=== PATIENT | female | born 1955 | race Caucasian/White ===

== ENCOUNTER 2020-05-12 18:47 | Emergency (ER) | payer MEDICARE, MEDICAID ==
[2020-05-12 19:30] LABS: ALBUMIN 4.5 g/dL (3.5-5.0); ALKALINE PHOSPHATASE 156 U/L (38-126); ANION GAP 16 (5-19); ASPARTATE AMINO TRANSFERASE 18 U/L (14-36); BILIRUBIN,DIRECT 0.3 mg/dL (0.0-0.4); BILIRUBIN,TOTAL 0.9 mg/dL (0.2-1.3); BLOOD UREA NITROGEN 48 mg/dL (7-20); CALCIUM 10.1 mg/dL (8.4-10.2); CARBON DIOXIDE 17 mmol/L (22-30); CHLORIDE 99 mmol/L (98-107); CREATINE KINASE 38 U/L (30-135); TOTAL PROTEIN 7.7 g/dL (6.3-8.2)
[2020-05-12 19:32] LABS: ABSOLUTE BASOPHILS # (AUTO) 0.1 10^3/uL (0.0-0.2); ABSOLUTE EOSINOPHILS # (AUTO) 0.3 10^3/uL (0.0-0.6); ABSOLUTE LYMPHOCYTES (AUTO) 2.3 10^3/uL (0.5-4.7); ABSOLUTE MONOCYTES (AUTO) 0.8 10^3/uL (0.1-1.4); ABSOLUTE NEUT (AUTO) 8.1 10^3/uL (1.7-8.2); BASOPHILS % (AUTO) 1.1 % (0-2); EOSINOPHILS % (AUTO) 2.7 % (0-6); HEMATOCRIT 39.2 % (36.0-47.0); HEMOGLOBIN 13.3 g/dL (12.0-15.5); LYMPHOCYTES % (AUTO) 20.1 % (13-45); MEAN CORPUSCULAR HEMOGLOBIN 28.6 pg (27.0-33.4); MEAN CORPUSCULAR HGB CONC 33.9 g/dL (32.0-36.0); MEAN CORPUSCULAR VOLUME 84 fl (80-97); MONOCYTES % (AUTO) 6.7 % (3-13); PLATELET COUNT 292 10^3/uL (150-450); RED BLOOD COUNT 4.65 10^6/uL (3.72-5.28); RED CELL DISTRIBUTION WIDTH 16.3 % (11.5-14.0); SEGMENTED NEUTROPHILS % (AUTO) 69.4 % (42-78); TOTAL CELLS COUNTED % (AUTO) 100 %; WHITE BLOOD COUNT 11.7 10^3/uL (4.0-10.5)
[2020-05-12 19:42] LABS: CREATINE KINASE MB 0.62 ng/mL (<4.55)
[2020-05-12 19:44] LABS: TROPONIN I < 0.012 ng/mL
[2020-05-12 19:45] LABS: GLUCOSE 469 mg/dL (75-110)
[2020-05-12] MEDS ORDERED: INSULIN REG, HUMAN 100 UNIT/ML 3 ML VIAL (PYX) IV STA (20:08)
[2020-05-12] MEDS ORDERED: NORMAL SALINE 1000 ML 1,000 ML IV ONE (20:09)
--- NOTE | 2020-05-12 20:13 | ER Document Report ---
ED General - General Chief Complaint: General Weakness Stated Complaint: CHEST PAIN Time Seen by Provider: 05/12/20 19:54 Primary Care Provider: PER GUAN MD [[facility] BASED STAFF] - Follow up as needed RICKY GALAVIZ [NO LOCAL MD] - Follow up as needed Mode of Arrival: Stretcher Information source: Patient Notes: Patient is a 64-year-old female was brought into the emergency room by EMS with complaint of chest pain. Patient states she just moved here from out of town is living with her granddaughter. She states that in the move she lost her medications and is been without her insulin for the past few days. Patient states she has a past medical history pertinent for CVA x2 was on blood thinners but cannot remember when she took it last. She states that earlier today she got up felt dizzy fell and struck her head and left side of her body on the floo r. She is complaining of left-sided head pain and left shoulder pain. She also is complaining of some chest pain. Patient denies any past medical history pertinent for cardiac events. She does not know the medication she has been on in the past. She also states that she has been recently treated for UTI and is still having symptoms of burning when she urinates. TRAVEL OUTSIDE OF THE [place] IN LAST 30 DAYS: No - HPI Onset: This afternoon Onset/Duration: Gradual, Persistent, Worse Quality of pain: Achy Severity: Moderate Pain Level: 3 Associated symptoms: Body/muscle aches. denies: Chest pain Exacerbated by: Movement Relieved by: Denies Similar symptoms previously: Yes Recently seen / treated by doctor: No - Related Data Allergies/Adverse Reactions: Penicillins Allergy (Mild, Verified 05/12/20 21:01) Past Medical History - General Information source: Patient, Relative - Social History Smoking Status: Unknown if Ever Smoked Cigarette use (# per day): No Chew tobacco use (# tins/day): No Smoking Education Provided: No Frequency of alcohol use: None Drug Abuse: None Lives with: Family Family History: Reviewed & Not Pertinent - Past Medical History Cardiac Medical History: Reports: Hx Hypertension Endocrine Medical History: Reports: Hx Diabetes Mellitus Type 2 Review of Systems - Review of Systems Constitutional: Weakness EENT: No symptoms reported Cardiovascular: denies: Chest pain Respiratory: No symptoms reported Gastrointestinal: No symptoms reported Genitourinary: See HPI, Burning. denies: Discharge, Hematuria, Pain, Urgency, Retention Female Genitourinary: No symptoms reported. denies: Vaginal bleeding Musculoskeletal: See HPI, Muscle pain Skin: See HPI, Rash Hematologic/Lymphatic: No symptoms reported Neurological/Psychological: No symptoms reported -: Yes All other systems reviewed and negative Physical Exam - Vital signs Vitals: BP Pulse Ox 162/88 H 98 05/12/20 18:53 05/12/20 18:53 Interpretation: Hypertensive, Tachypneic - Notes Notes: PHYSICAL EXAMINATION: GENERAL: Patient is a well-nourished well-developed 64-year-old female no apparent distress on physical exam list does appear somewhat uncomfortable. HEAD: Examination patient's head shows no sign of hematomas abrasions ecchymosis or swelling. No palpable tenderness on the left side of the face. Patient has full range of motion of the jaw without any discomfort. EYES: Pupils equal round and reactive to light, extraocular movements intact, conjunctiva are normal. ENT: Nares patent, oropharynx clear without exudates. Oral mucosa is moderately dry but no fissuring of the tongue noted. NECK: Normal range of motion, supple without lymphadenopathy LUNGS: Breath sounds clear to auscultation bilaterally and equal. No wheezes rales or rhonchi. HEART: Regular rate and rhythm without murmurs ABDOMEN: Examination patient's abdomen shows bowel sounds present all 4 quads. She is nontender to palpate in all 4 quadrants. Female : The pelvic exam was not needed however given the patient was complaining of dysuria or urinary tract symptoms without having any infection in her urine visualization and the area shows patient to have an extended amount of candidiasis in her labial folds and groin area. This also ascends into her creases in the abdominal area and up to her breast. Musculoskeletal: Normal range of motion, no pitting or edema. No cyanosis. NEUROLOGICAL: . Normal speech, normal gait. Normal sensory, motor exams PSYCH: Normal mood, normal affect. SKIN: As noted above in patient was found to have a severe case of candidiasis extending from the labial folds and groin area upwards. Course - Re-evaluation Re-evalutation: 05/13/20 02:10 Patient's course has been really uneventful. Her blood sugar went from 572 down to 321. Patient was feeling better. She still complains of having burning sensation when she urinates even though her urine is negative. Examination of this pelvic area after urine was negative shows the patient has a severe candidiasis of the vaginal area and the folds in the abdominal area. Patient's nurse contacted her granddaughter who she is now living with and was confirmed that patient has been without her Lantus and her insulin for several days. She has just moved here from [facility]. And the daughter and daughter state they are not going back to see her primary care. They are currently actively seeking a local PCP. Patient states she is ready to go home she is feeling so much better. 05/13/20 02:10 05/13/20 02:23 Patient has been ambulated by the nurse to the bathroom and back without any dizziness or pain. Given the plan we have discussed with the granddaughter she will take patient back by cab and she will find a primary care provider. Have given them the name of the internal medicine doctor on-call tonight they can follow-up with them or see if they can accommodate them. - Vital Signs Vital signs: Temp Pulse Resp BP Pulse Ox 98.7 F 85 17 149/84 H 98 05/13/20 03:44 05/13/20 03:44 05/13/20 03:44 05/13/20 03:44 05/13/20 03:44 - Laboratory Result Diagrams: 05/12/20 18:59 05/12/20 18:59 Laboratory results interpreted by me: 05/12/20 05/12/20 05/12/20 18:59 18:59 21:53 WBC 11.7 H RDW 16.3 H Sodium 132.0 L Carbon Dioxide 17 L BUN 48 H Creatinine 1.36 H Est GFR ( Amer) 47 L Est GFR (MDRD) Non-Af 39 L Glucose 469 H* POC Glucose Alkaline Phosphatase 156 H Urine Protein 100 H Urine Glucose (UA) >=500 H Urine Blood SMALL H 05/12/20 05/13/20 22:25 01:20 WBC RDW Sodium Carbon Dioxide BUN Creatinine Est GFR ( Amer) Est GFR (MDRD) Non-Af Glucose POC Glucose 452 H* 341 H Alkaline Phosphatase Urine Protein Urine Glucose (UA) Urine Blood Discharge - Discharge Clinical Impression: Type 2 diabetes mellitus with hyperosmolar nonketotic hyperglycemia, Candidiasis of female genitalia, Candidiasis of breast Contusion of left shoulder Qualifiers: Encounter type: initial encounter Qualified Code(s): S40.012A - Contusion of left shoulder, initial encounter Condition: Stable Disposition: HOME, SELF-CARE Instructions: Contusion ([facility]), Hyperglycemia ([facility]) Additional Instructions: As we discussed home and continue your insulin as directed by your primary care provider. I am writing you for Lantus pen as well as the insulin pen. Continue with your current other medications that your granddaughter states you have in your drawer at bedside. Highly recommend that you make a list of we should take your medications and bring a list with you when you come to your doctors. It is very important you take your insulin as directed otherwise you continue to get dizzy spells and or falls. Currently you have no fracture bones of your shoulder. Highly recommend that you monitor your sugars more closely at least before each meal and as stated take the insulin as directed by your primary care provider. If you have concerns or problems or you are not getting better return to ER for reevaluation. Prescriptions: Insulin Aspart [Insulin Aspart Flexpen] 100 unit SQ ASDIR PRN #1 [email or web address] PRN Reason: Insulin Glargine,Hum.rec.anlog [Lantus Insulin 100 Unit/mL Insulin Pen] 1 unit SUBCUT BID #10 ml Forms: Elevated Blood Pressure Referrals: RICKY GALAVIZ [NO LOCAL MD] - Follow up as needed PER GUAN MD [[facility] BASED STAFF] - Follow up as needed
--- NOTE | 2020-05-12 20:16 | RADIOLOGY REPORT (SQ) ---
EXAM DESCRIPTION: RadLex: XR CHEST 1 VIEW CLINICAL HISTORY: 64 years Female; cp; COMPARISON: None. FINDINGS: Lungs: Lungs are clear, with no focal infiltrate, pneumothorax, or pleural effusion. Mediastinum: Mediastinum is within normal limits for this positioning. Bones: Bony structures are unremarkable. IMPRESSION: 1. No acute pulmonary findings.
[2020-05-12] MEDS ORDERED: INSULIN NPH (ISOPHANE), HUMAN 100 UNIT/ML 3 ML SUBCUT ONE (20:43)
--- NOTE | 2020-05-12 20:47 | RADIOLOGY REPORT (SQ) ---
CLINICAL INDICATION: fall pain. . TECHNIQUE: 3 view(s) were obtained of the left shoulder. COMPARISON: None. FINDINGS: No acute displaced fracture is identified of the shoulder. Alignment appears anatomic. Osteoarthritis. Surrounding soft tissues are unremarkable. IMPRESSION: No evidence of acute bony injury to the shoulder.
[2020-05-12] MEDS ORDERED: INSULIN REG, HUMAN 100 UNIT/ML 3 ML VIAL (PYX) SUBCUT ONE (20:49)
--- NOTE | 2020-05-12 20:49 | RADIOLOGY REPORT (SQ) ---
EXAM DESCRIPTION: CT HEAD WITHOUT IV CONTRAST COMPLETED DATE/TME: 05/12/2020 20:05 CLINICAL INDICATION: 54-year-old female status post fall. History of stroke. COMPARISON: No prior imaging is available for comparison TECHNIQUE: CT brain without contrast. This exam was performed according to our departmental dose optimization program which includes use of automated exposure control, adjustment of the mA and/or kV according to patient size and/or use of iterative reconstruction technique. FINDINGS: Multifocal regions of patchy hypoattenuation are present in a subcortical and periventricular deep white matter distribution, nonspecific; however, most likely represent small vessel ischemic disease, age indeterminate. Subcentimeter hypoattenuation within the bilateral basal ganglia age-indeterminate, however appearance suggestive of sequela of prior infarction. The ventricles, sulci, and cisterns are symmetric and unremarkable. The cunningham-white matter differentiation is preserved. There is no mass effect, midline shift, intra- or extra-axial fluid collection/acute hemorrhage. The osseous structures are unremarkable. The paranasal sinuses and mastoid air cells are clear. IMPRESSION: 1. No acute intracranial abnormalities. Nonspecific white matter change most likely small vessel ischemic disease, age indeterminate. 2. CT is insensitive for early evaluation of acute stroke. If there is clinical concern for acute ischemia, an MRI may be considered.
[2020-05-12 22:37] LABS: VENOUS BLOOD BASE EXCESS -0.9 mmol/L; VENOUS BLOOD HCO3 24.2 mmol/L (20-32); VENOUS BLOOD PH 7.38 (7.30-7.42)
[2020-05-12 22:58] LABS: APPEARANCE,URINE SLIGHTLY-CLOUDY; BILIRUBIN,URINE NEGATIVE (NEGATIVE); COLOR,URINE YELLOW; GLUCOSE, URINE >=500 mg/dL (NEGATIVE); KETONES,URINE NEGATIVE (NEGATIVE); LEUKOCYTE ESTERASE,URINE NEGATIVE (NEGATIVE); NITRITE,URINE NEGATIVE (NEGATIVE); PROTEIN,URINE 100 mg/dL (NEGATIVE); URINE SPECIFIC GRAVITY 1.008; UROBILINOGEN,URINE NEGATIVE mg/dL (<2.0)
--- NOTE | 2020-05-12 23:36 | EKG REPORT ---
SEVERITY:- ABNORMAL ECG - INCOMPLETE ANALYSIS DUE TO MISSING DATA IN PRECORDIAL LEAD(S) SINUS RHYTHM VENTRICULAR PREMATURE COMPLEX LVH WITH SECONDARY REPOLARIZATION ABNORMALITY : Confirmed by: Marie Rincon MD 12-May-2020 23:35:34
[2020-05-13] MEDS ORDERED: RINGERS SOLUTION,LACTATED 1,000 ML IV ONE (00:03)
[2020-05-13] MEDS: RINGERS SOLUTION,LACTATED 1,000 ML IV ONE ×2 (00:17→00:25)
[2020-05-13] MEDS ORDERED: FLUCONAZOLE 100 MG TABLET PO ONE (01:16)
[2020-05-13 03:45] VITALS: BP 149/84
== END 2020-05-13 03:44 | disposition home or self-care (01) ==
LOC: ER 18:47
DX: E11.65 Type 2 diabetes mellitus with hyperglycemia (principal); T38.3X6A Underdosing of insulin and oral hypoglycemic [antidiabetic] drugs, initial encounter; Z91.128 Patient's intentional underdosing of medication regimen for other reason; Z91.14 Patient's other noncompliance with medication regimen; S40.012A Contusion of left shoulder, initial encounter; R51 Headache; W19.XXXA Unspecified fall, initial encounter; R07.9 Chest pain, unspecified; B37.3 Candidiasis of vulva and vagina; B37.2 Candidiasis of skin and nail; R53.1 Weakness; R42 Dizziness and giddiness; R30.0 Dysuria; I10 Essential (primary) hypertension; Z87.440 Personal history of urinary (tract) infections; Z86.73 Personal history of transient ischemic attack (TIA), and cerebral infarction without residual deficits; Z88.0 Allergy status to penicillin
CPT/HCPCS: 93005; 99285; 96360; 96361; 36415; 87086; 82553; 82962; 82550; 83735; 85025; 87088; 80053; 81001; 84484; 87186; 82803; 71045; 73030; 70450; 93010; A9270 ×2; J7030; J7120; J1815

== ENCOUNTER 2020-08-06 08:30 | Emergency (ER) | payer MEDICARE, MEDICAID ==
[2020-08-06] MEDS ORDERED: ONDANSETRON HCL INJ/PF 4 MG/2 ML SDV IV ONE (10:29)
[2020-08-06] MEDS ORDERED: NORMAL SALINE 1000 ML 1,000 ML IV ONE ×2 (10:29→12:16)
[2020-08-06] MEDS ORDERED: MORPHINE SULFATE 10 MG/ML INJ IV ONE (10:29)
[2020-08-06 10:35] LABS: APPEARANCE,URINE CLOUDY; BILIRUBIN,URINE NEGATIVE (NEGATIVE); COLOR,URINE YELLOW; GLUCOSE, URINE >=500 mg/dL (NEGATIVE); KETONES,URINE TRACE mg/dL (NEGATIVE); LEUKOCYTE ESTERASE,URINE MODERATE (NEGATIVE); NITRITE,URINE NEGATIVE (NEGATIVE); PROTEIN,URINE >=500 mg/dL (NEGATIVE); URINE SPECIFIC GRAVITY 1.015; UROBILINOGEN,URINE NEGATIVE mg/dL (<2.0)
--- NOTE | 2020-08-06 10:48 | ER Document Report ---
ED GI/ - General Chief Complaint: Flank Pain Stated Complaint: ABDOMINAL PAIN Time Seen by Provider: 08/06/20 10:14 Notes: HPI: 64-year-old female that presents today with the onset 3 days ago of some suprapubic/right lower quadrant abdominal discomfort radiating to the right abdomen and right flank. She states it is "sharp and crampy" in nature. Positive dysuria. Supposedly a fever of 102 yesterday. History of kidney stones. Patient denies any nausea, vomiting, or diarrhea. No runny nose, congestion, or cough. No real aggravating relieving factors to the pain. ROS: See HPI All other review of systems reviewed and otherwise negative Reviewed vital signs and nursing note as charted by RN. PHYSICAL EXAM: CONSTITUTIONAL: Alert and oriented and responds appropriately to questions. Well-appearing; well-nourished HEAD: Normocephalic; atraumatic NECK: Supple without meningismus; non-tender; no cervical lymphadenopathy, no masses CARD: Regular rate and rhythm; no murmurs; symmetric distal pulses RESP: Normal chest excursion without splinting or tachypnea; breath sounds clear and equal bilaterally; no wheezes, no rhonchi, no rales ABD: Nonspecific tenderness to bilateral lower quadrants of the abdomen with no palpable masses or abdominal bruits. No rebound or guarding non-tender; no palpable organomegaly or masses BACK: The back appears normal and is non-tender to palpation EXT: Normal ROM in all joints; non-tender to palpation; no edema SKIN: Erythema under the pannus to bilateral lower quadrants of the abdomen with no tenderness or induration. NEURO: CN 2-12 intact; 5/5 bilateral upper and lower extremity strength with sensation intact to light touch PSYCH: The patient's mood and manner are appropriate. Grooming and personal hygiene are appropriate. TRAVEL OUTSIDE OF THE [place] IN LAST 30 DAYS: No - Related Data Allergies/Adverse Reactions: Penicillins Allergy (Mild, Verified 08/06/20 09:57) Past Medical History - Social History Smoking Status: Never Smoker Chew tobacco use (# tins/day): No Frequency of alcohol use: None Drug Abuse: None Family History: Reviewed & Not Pertinent - Past Medical History Cardiac Medical History: Reports: Hx Hypertension Endocrine Medical History: Reports: Hx Diabetes Mellitus Type 2 Physical Exam - Vital signs Vitals: Temp Pulse BP Pulse Ox 98.2 F 83 132/76 H 100 08/06/20 08:53 08/06/20 08:53 08/06/20 08:53 08/06/20 08:53 Course - Re-evaluation Re-evalutation: Given the history and physical examination, patient's age, history of kidney stones, will obtain basic labs, urine analysis, renal colic CT scan, and reassess. Would like to evaluate for the possibility of urinary tract infection, kidney stone, abdominal obstruction, appendicitis, diverticulitis, other acute abdominal pathology. 08/06/20 11:17 Urine analysis as recorded. Rocephin has been provided. Awaiting laboratory values. 08/06/20 12:16 Urine analysis as recorded. Vital signs are stable. Another 500 cc bolus. Lexi graham is an insulin-dependent diabetic. Patient is nontoxic-appearing. Rocephin has been provided. Urine culture has been sent. We will start the patient on a course of Keflex with strict return precautions and follow-up with the primary care physician. - Vital Signs Vital signs: Temp Pulse Resp BP Pulse Ox 98.2 F 83 132/76 H 100 08/06/20 08:53 08/06/20 08:53 08/06/20 08:53 08/06/20 08:53 - Laboratory Result Diagrams: 08/06/20 11:20 08/06/20 11:20 Laboratory results interpreted by me: 08/06/20 08/06/20 10:13 11:20 Sodium 133.9 L Carbon Dioxide 17 L Est GFR (MDRD) Non-Af 50 L Glucose 314 H Urine Protein >=500 H Urine Glucose (UA) >=500 H Urine Ketones TRACE H Urine Blood SMALL H Ur Leukocyte Esterase MODERATE H Discharge - Discharge Clinical Impression: Urinary tract infection Qualifiers: Urinary tract infection type: site unspecified Hematuria presence: without hematuria Qualified Code(s): N39.0 - Urinary tract infection, site not specified Condition: Good Disposition: HOME, SELF-CARE Additional Instructions: Come back immediately for any fevers, vomiting, worsening pain, change in location or quality of pain, or any other acute problems. Please make sure that you take your insulin appropriately as well as the antibiotics we have prescribed and follow-up with the primary care physician for reassessment and analysis of the urine culture. Prescriptions: Cephalexin Monohydrate [Keflex 500 mg Capsule] 500 mg PO Q6H 10 Days #30 capsule
[2020-08-06] MEDS ORDERED: CEFTRIAXONE 1 GM/D5W RTU 1 GM/50 ML RTUPB IV ONE (11:16)
--- NOTE | 2020-08-06 11:30 | RADIOLOGY REPORT (SQ) ---
EXAM DESCRIPTION: CT ABD/PELVIS NO ORAL OR IV IMAGES COMPLETED DATE/TIME: 08/06/2020 11:02 am REASON FOR STUDY: 13, Right quadrant and right flank pain with COMPARISON: None. TECHNIQUE: CT scan of the abdomen and pelvis performed without intravenous or oral contrast. Images reviewed with lung, soft tissue, and bone windows. Reconstructed coronal and sagittal MPR images revi ewed. All images stored on PACS. All CT scanners at this facility use dose modulation, iterative reconstruction, and/or weight based d osing when appropriate to reduce radiation dose to as low as reasonably achievable (ALARA). [facility]: Dose Right [facility]: CareDose [facility]: Dose Right [facility]: Teradose 4D [facility]: [employer] RADIATION DOSE: CT Rad equipment meets quality standard of care and radiation dose reduction techniq ues were employed. CTDIvol: 12.0 mGy. DLP: 645 mGy-cm.mGy. LIMITATIONS: None. FINDINGS: LOWER CHEST: No significant findings. No nodules or infiltrates. NON-CONTRASTED LIVER, SPLEEN, ADRENALS: Evaluation limited by lack of IV contrast. 13 mm low-density nodule of the right adrenal gland, likely adenomas. . PANCREAS: No masses. No peripancreatic inflammatory changes. GALLBLADDER: Surgically absent. RIGHT KIDNEY AND URETER: No cysts identified. No solid masses. No calcified stones. No hydronephrosis or hydroureter. LEFT KIDNEY AND URETER: No cysts identified. No solid masses. No calcified stones. No hydronephrosis or hydroureter. AORTA AND RETROPERITONEUM: No aneurysm. No retroperitoneal masses or adenopathy. BOWEL AND PERITONEAL CAVITY: No obvious masses or inflammatory changes. No free fluid. APPENDIX: Normal. PELVIS, BLADDER, AND ABDOMINAL WALL:Moderate bladder wall thickening with endoluminal gas. No free f luid. . BONES: No acute findings. OTHER: No other significant finding. IMPRESSION: Moderate bladder wall thickening with endoluminal gas, correlate with clinical informati on to exclude infection. No other acute findings or inflammatory changes. TECHNICAL DOCUMENTATION: JOB ID: [id number] Quality ID # [id number]: Final reports with documentation of one or more dose reduction techniques (e.g., Au tomated exposure control, adjustment of the mA and/or kV according to patient size, use of iterative reconstruction technique) 2010 [employer]- All Rights Reserved Reading location - IP/workstation name: [email or web address]
[2020-08-06 11:44] LABS: ABSOLUTE BASOPHILS # (AUTO) 0.1 10^3/uL (0.0-0.2); ABSOLUTE EOSINOPHILS # (AUTO) 0.5 10^3/uL (0.0-0.6); ABSOLUTE LYMPHOCYTES (AUTO) 1.9 10^3/uL (0.5-4.7); ABSOLUTE MONOCYTES (AUTO) 0.8 10^3/uL (0.1-1.4); ABSOLUTE NEUT (AUTO) 6.3 10^3/uL (1.7-8.2); BASOPHILS % (AUTO) 0.8 % (0-2); EOSINOPHILS % (AUTO) 5.1 % (0-6); HEMATOCRIT 41.1 % (36.0-47.0); HEMOGLOBIN 14.2 g/dL (12.0-15.5); LYMPHOCYTES % (AUTO) 20.3 % (13-45); MEAN CORPUSCULAR HEMOGLOBIN 30.9 pg (27.0-33.4); MEAN CORPUSCULAR HGB CONC 34.4 g/dL (32.0-36.0); MEAN CORPUSCULAR VOLUME 90 fl (80-97); MONOCYTES % (AUTO) 8.1 % (3-13); PLATELET COUNT 318 10^3/uL (150-450); RED BLOOD COUNT 4.58 10^6/uL (3.72-5.28); RED CELL DISTRIBUTION WIDTH 13.3 % (11.5-14.0); SEGMENTED NEUTROPHILS % (AUTO) 65.7 % (42-78); TOTAL CELLS COUNTED % (AUTO) 100 %; WHITE BLOOD COUNT 9.6 10^3/uL (4.0-10.5)
[2020-08-06 11:55] LABS: ANION GAP 15 (5-19); BLOOD UREA NITROGEN 20 mg/dL (7-20); CALCIUM 9.3 mg/dL (8.4-10.2); CARBON DIOXIDE 17 mmol/L (22-30); CHLORIDE 102 mmol/L (98-107); GLUCOSE 314 mg/dL (75-110); POTASSIUM 4.3 mmol/L (3.6-5.0)
[2020-08-06 12:31] VITALS: BP 150/86
== END 2020-08-06 13:39 | disposition home or self-care (01) ==
LOC: ER 08:30
DX: N39.0 Urinary tract infection, site not specified (principal); I10 Essential (primary) hypertension; E11.9 Type 2 diabetes mellitus without complications; Z87.442 Personal history of urinary calculi; Z88.0 Allergy status to penicillin
CPT/HCPCS: 99285; 96361; 96375; 96365; 36415; 87086; 85025; 87088; 80048; 81001; 74176; J2270; J2405; J7030; J0696; 87186